=== PATIENT | male | born 1945 | race Caucasian/White ===

== ENCOUNTER 2021-01-21 19:03 | Inpatient (IN) | payer MEDICARE, OTHER ==
[~2021-01-21] VITALS: Ht 180.3 cm; Wt 78.2 kg
[2021-01-21 19:22] LABS: HEMOGLOBIN 15.8 gm/dl (14.0-17.5); RED BLOOD COUNT 5.38 M/UL (4.20-5.50); WHITE BLOOD COUNT 6.1 K/UL (4.5-11.0)
[2021-01-22] MEDS ORDERED: ASPIRIN 325MG325 MG PO (01:58)
[2021-01-22] MEDS ORDERED: ATORVASTATIN CA20 MG PO (02:00)
[2021-01-22] MEDS ORDERED: CLOPIDOGREL75 MG PO (02:00)
[2021-01-22] MEDS ORDERED: DIABETA 2.5 MG2.5 MG PO (02:01)
[2021-01-22] MEDS ORDERED: LANTUS SOL100 UNIT/1 SQ (02:01)
[2021-01-22] MEDS ORDERED: DEXILANT60 MG PO (02:01)
[2021-01-22] MEDS ORDERED: NITRO-TIME2.5 MG PO (02:02)
[2021-01-22 02:17] LABS: HEMOGLOBIN 15.1 gm/dl (14.0-17.5); RED BLOOD COUNT 5.18 M/UL (4.20-5.50)
[2021-01-22 02:19] LABS: WHITE BLOOD COUNT 3.9 K/UL (4.5-11.0)
[2021-01-22 02:40] LABS: BUN/CREATININE RATIO 23 (0-10)
[2021-01-23 07:19] LABS: HEMOGLOBIN 14.2 gm/dl (14.0-17.5); RED BLOOD COUNT 5.22 M/UL (4.20-5.50)
[2021-01-23 07:34] LABS: WHITE BLOOD COUNT 9.7 K/UL (4.5-11.0)
[2021-01-23 07:43] LABS: BUN/CREATININE RATIO 34 (0-10)
[2021-01-24 06:39] LABS: HEMOGLOBIN 15.2 gm/dl (14.0-17.5); RED BLOOD COUNT 5.31 M/UL (4.20-5.50)
[2021-01-24 06:41] LABS: WHITE BLOOD COUNT 16.8 K/UL (4.5-11.0)
[2021-01-24 07:06] LABS: BUN/CREATININE RATIO 40 (0-10)
--- NOTE | 2021-01-24 11:52 | NUR ---
PATIENT HAS CONFUSION TODAY, BUT WAS HYPOXIC FOR MOST OF OVERNIGHT. IS NON-COMPLIANT WITH HIS O2, WILL NOT KEEP IT ON. GOT A 1:1 SITTER TO HELP KEEP HIS OXYGEN ON. HE DROPS TO THE 50S WITHIN A SHORT PERIOD OF TIME BEING ON RA, BUT COMES BACK UP TO THE 90S ONCE HIS AIRVO IS BACK IN PLACE. PATIENT REFUSES TO USE BIPAP. WCTM CLOSELY.
[2021-01-25 10:42] LABS: HEMOGLOBIN 14.9 gm/dl (14.0-17.5); RED BLOOD COUNT 5.15 M/UL (4.20-5.50); WHITE BLOOD COUNT 14.7 K/UL (4.5-11.0)
[2021-01-25 11:08] LABS: BUN/CREATININE RATIO 40 (0-10)
--- NOTE | 2021-01-25 12:50 | NUR ---
PATIENT REMAINS CONFUSED TODAY, KEEPS PULLING OFF HIS OXYGEN. CALLED MD TO LET HIM KNOW THE STATUS, MD PUT IN ORDERS. PATIENT GOT MEDICATION TO HELP WITH HIS RESTLESSNESS AND HAS SINCE SETTLED AND KEPT HIS OXYGEN ON. SPOKE WITH PATIENT'S FAMILY TO LET THEM KNOW WE HAVE THE FORM THEY NEED TO TAKE TO COURT, THEY WILL BE PICKING IT UP TODAY. WCANN CLOSELY.
[2021-01-26 07:04] LABS: BUN/CREATININE RATIO 57 (0-10)
[2021-01-27 04:55] LABS: HEMOGLOBIN 14.7 gm/dl (14.0-17.5); RED BLOOD COUNT 5.11 M/UL (4.20-5.50)
[2021-01-27 05:00] LABS: WHITE BLOOD COUNT 19.2 K/UL (4.5-11.0)
[2021-01-27 05:44] LABS: BUN/CREATININE RATIO 46 (0-10)
[2021-01-28 04:46] LABS: HEMOGLOBIN 15.4 gm/dl (14.0-17.5); RED BLOOD COUNT 5.33 M/UL (4.20-5.50); WHITE BLOOD COUNT 17.3 K/UL (4.5-11.0)
[2021-01-28 05:08] LABS: BUN/CREATININE RATIO 48 (0-10)
[2021-01-29 06:26] LABS: WHITE BLOOD COUNT 13.2 K/UL (4.5-11.0)
[2021-01-29 06:30] LABS: HEMOGLOBIN 13.3 gm/dl (14.0-17.5); RED BLOOD COUNT 4.63 M/UL (4.20-5.50)
[2021-01-29 07:19] LABS: BUN/CREATININE RATIO 51 (0-10)
[2021-01-30 06:20] LABS: HEMOGLOBIN 12.4 gm/dl (14.0-17.5); RED BLOOD COUNT 4.4 M/UL (4.20-5.50); WHITE BLOOD COUNT 8.6 K/UL (4.5-11.0)
[2021-01-30 06:58] LABS: BUN/CREATININE RATIO 58 (0-10)
[2021-01-31 05:24] LABS: HEMOGLOBIN 12.6 gm/dl (14.0-17.5); RED BLOOD COUNT 4.45 M/UL (4.20-5.50)
[2021-01-31 05:48] LABS: BUN/CREATININE RATIO 65 (0-10)
[2021-02-01 06:06] LABS: BUN/CREATININE RATIO 68 (0-10)
[2021-02-02 06:50] LABS: HEMOGLOBIN 13.3 gm/dl (14.0-17.5); RED BLOOD COUNT 4.62 M/UL (4.20-5.50)
[2021-02-02 06:51] LABS: WHITE BLOOD COUNT 14.5 K/UL (4.5-11.0)
[2021-02-02 07:29] LABS: BUN/CREATININE RATIO 72 (0-10)
[2021-02-03 06:38] LABS: HEMOGLOBIN 13.7 gm/dl (14.0-17.5); RED BLOOD COUNT 4.74 M/UL (4.20-5.50)
[2021-02-03 06:39] LABS: WHITE BLOOD COUNT 18.5 K/UL (4.5-11.0)
[2021-02-03 07:24] LABS: BUN/CREATININE RATIO 71 (0-10)
[2021-02-04 05:02] LABS: RED BLOOD COUNT 4.52 M/UL (4.20-5.50); WHITE BLOOD COUNT 15.4 K/UL (4.5-11.0)
[2021-02-04 05:22] LABS: BUN/CREATININE RATIO 76 (0-10)
[2021-02-05 04:52] LABS: HEMOGLOBIN 13.1 gm/dl (14.0-17.5); RED BLOOD COUNT 4.53 M/UL (4.20-5.50); WHITE BLOOD COUNT 13.2 K/UL (4.5-11.0)
[2021-02-05 05:34] LABS: BUN/CREATININE RATIO 82 (0-10)
[2021-02-06 05:33] LABS: HEMOGLOBIN 12.9 gm/dl (14.0-17.5); RED BLOOD COUNT 4.52 M/UL (4.20-5.50); WHITE BLOOD COUNT 15.2 K/UL (4.5-11.0)
[2021-02-06 05:55] LABS: BUN/CREATININE RATIO 103 (0-10)
[2021-02-07 04:49] LABS: HEMOGLOBIN 12.8 gm/dl (14.0-17.5); RED BLOOD COUNT 4.46 M/UL (4.20-5.50); WHITE BLOOD COUNT 13.6 K/UL (4.5-11.0)
[2021-02-07 06:04] LABS: BUN/CREATININE RATIO 57 (0-10)
[2021-02-08 06:05] LABS: HEMOGLOBIN 12.8 gm/dl (14.0-17.5); RED BLOOD COUNT 4.45 M/UL (4.20-5.50); WHITE BLOOD COUNT 15.3 K/UL (4.5-11.0)
[2021-02-08 06:24] LABS: BUN/CREATININE RATIO 62 (0-10)
[2021-02-09 05:18] LABS: HEMOGLOBIN 13.6 gm/dl (14.0-17.5); RED BLOOD COUNT 4.7 M/UL (4.20-5.50); WHITE BLOOD COUNT 12.5 K/UL (4.5-11.0)
[2021-02-09 06:00] LABS: BUN/CREATININE RATIO 64 (0-10)
[2021-02-10 05:07] LABS: HEMOGLOBIN 13.9 gm/dl (14.0-17.5); RED BLOOD COUNT 4.79 M/UL (4.20-5.50); WHITE BLOOD COUNT 13.6 K/UL (4.5-11.0)
[2021-02-10 05:24] LABS: BUN/CREATININE RATIO 66 (0-10)
[2021-02-12 04:10] LABS: HEMOGLOBIN 13.3 gm/dl (14.0-17.5); RED BLOOD COUNT 4.74 M/UL (4.20-5.50); WHITE BLOOD COUNT 13.6 K/UL (4.5-11.0)
[2021-02-12 04:46] LABS: BUN/CREATININE RATIO 64 (0-10)
[2021-02-13 03:12] LABS: HEMOGLOBIN 13.7 gm/dl (14.0-17.5); RED BLOOD COUNT 4.82 M/UL (4.20-5.50); WHITE BLOOD COUNT 10.8 K/UL (4.5-11.0)
[2021-02-13 03:35] LABS: BUN/CREATININE RATIO 58 (0-10)
[2021-02-14 03:34] LABS: HEMOGLOBIN 14.2 gm/dl (14.0-17.5); RED BLOOD COUNT 4.97 M/UL (4.20-5.50); WHITE BLOOD COUNT 10.3 K/UL (4.5-11.0)
[2021-02-14 04:42] LABS: BUN/CREATININE RATIO 66 (0-10)
[2021-02-15 03:02] LABS: RED BLOOD COUNT 4.92 M/UL (4.20-5.50); WHITE BLOOD COUNT 11.7 K/UL (4.5-11.0)
[2021-02-15 03:36] LABS: BUN/CREATININE RATIO 56 (0-10)
--- NOTE | 2021-02-15 19:50 | NUR ---
FALL RISK PERCAUTIONS IN PLACE. BED ALARM ON.
[2021-02-16 06:34] LABS: HEMOGLOBIN 14.4 gm/dl (14.0-17.5); RED BLOOD COUNT 5.02 M/UL (4.20-5.50); WHITE BLOOD COUNT 9.8 K/UL (4.5-11.0)
[2021-02-16 07:00] LABS: BUN/CREATININE RATIO 62 (0-10)
[2021-02-17 03:33] LABS: HEMOGLOBIN 15.7 gm/dl (14.0-17.5); RED BLOOD COUNT 5.52 M/UL (4.20-5.50); WHITE BLOOD COUNT 11.3 K/UL (4.5-11.0)
[2021-02-17 03:52] LABS: BUN/CREATININE RATIO 65 (0-10)
[2021-02-18 06:26] LABS: BUN/CREATININE RATIO 62 (0-10)
[2021-02-19 06:02] LABS: HEMOGLOBIN 15.7 gm/dl (14.0-17.5); RED BLOOD COUNT 5.39 M/UL (4.20-5.50); WHITE BLOOD COUNT 13.7 K/UL (4.5-11.0)
[2021-02-19 06:30] LABS: BUN/CREATININE RATIO 61 (0-10)
[2021-02-20 07:10] LABS: HEMOGLOBIN 14.9 gm/dl (14.0-17.5); RED BLOOD COUNT 5.2 M/UL (4.20-5.50); WHITE BLOOD COUNT 14.1 K/UL (4.5-11.0)
[2021-02-20 07:21] LABS: BUN/CREATININE RATIO 55 (0-10)
[2021-02-21 05:25] LABS: BUN/CREATININE RATIO 57 (0-10)
[2021-02-21 09:34] LABS: HEMOGLOBIN 16.2 gm/dl (14.0-17.5); RED BLOOD COUNT 5.58 M/UL (4.20-5.50); WHITE BLOOD COUNT 12.6 K/UL (4.5-11.0)
[2021-02-22 06:47] LABS: HEMOGLOBIN 17.2 gm/dl (14.0-17.5); RED BLOOD COUNT 6.02 M/UL (4.20-5.50)
[2021-02-22 06:54] LABS: WHITE BLOOD COUNT 8.5 K/UL (4.5-11.0)
[2021-02-22 09:56] LABS: BUN/CREATININE RATIO 64 (0-10)
[2021-02-22] MEDS ORDERED: FLUCONAZOL40 MG/1 ML PO (12:43)
[2021-02-22] MEDS ORDERED: LOPRESSOR 50 MG50 MG NG (12:43)
[2021-02-22] MEDS ORDERED: ELIQUIS 2.5 MG2.5 MG GT (12:43)
--- NOTE | 2021-02-23 10:34 | NUR ---
DR. LAKHANI NOTIFIED REGARDING DISCHARGE WHICH WAS TO OCCUR YESTERDAY 02/22/21. DISCHARGE WAS HELD DUE TO PATIENT NOT HAVING BOWEL MOVEMENT. PATIENT HAD BM THIS AM. DR. LAKHANI NOTIFIED AND APPROVED DISCHARGE TO [facility] TODAY.
--- NOTE | 2021-02-23 11:04 | NUR ---
REPORT CALLED TO JASE AT [facility]. NOTIFIED FACILITY THAT AMBULANCE WOULD PICK PATIENT UP BETWEEN 1:30 AND 2PM.
== END 2021-02-23 13:30 | DRG 207 ==
LOC: ER1 19:03 → CCU 22:01 → MED SURG 4 22:01 → M/S 22:01 → CDU 22:01 → PROG CARE 22:01 → MED SURG 4 01-22 01:41 → CCU 01-26 14:54 → PROG CARE 02-10 16:24 → M/S 02-15 11:22
PROVIDERS: Internal Medicine; Internal Medicine Infectious Disease; Internal Medicine Pulmonary Disease; Nurse Practitioner Family; ADMIT Internal Medicine
PROC: XW033E5 Introduction of Remdesivir Anti-infective into Peripheral Vein, Percutaneous Approach, New Technology Group 5 (ICD-10-PCS; 2021-01-21)
PROC: 3E0333Z Introduction of Anti-inflammatory into Peripheral Vein, Percutaneous Approach (ICD-10-PCS; 2021-01-21)
PROC: 5A0945A Assistance with Respiratory Ventilation, 24-96 Consecutive Hours, High Flow/Velocity Cannula (ICD-10-PCS; 2021-01-22)
PROC: 5A09357 Assistance with Respiratory Ventilation, Less than 24 Consecutive Hours, Continuous Positive Airway Pressure (ICD-10-PCS; 2021-01-25)
PROC: 5A1955Z Respiratory Ventilation, Greater than 96 Consecutive Hours (ICD-10-PCS; principal; 2021-01-26)
PROC: 0BH17EZ Insertion of Endotracheal Airway into Trachea, Via Natural or Artificial Opening (ICD-10-PCS; 2021-01-26)
PROC: 0DH63UZ Insertion of Feeding Device into Stomach, Percutaneous Approach (ICD-10-PCS; 2021-02-04)
PROC: 3E0G76Z Introduction of Nutritional Substance into Upper GI, Via Natural or Artificial Opening (ICD-10-PCS; 2021-02-04)
PROC: 5A0955A Assistance with Respiratory Ventilation, Greater than 96 Consecutive Hours, High Flow/Velocity Cannula (ICD-10-PCS; 2021-02-04)
PROC: 8E0ZXY6 Isolation (ICD-10-PCS; 2021-02-08)
PROC: 0DH63UZ Insertion of Feeding Device into Stomach, Percutaneous Approach (ICD-10-PCS; 2021-02-16)
DX: U07.1 COVID-19 (principal); J12.82 Pneumonia due to coronavirus disease 2019; J80 Acute respiratory distress syndrome; J15.9 Unspecified bacterial pneumonia; G93.41 Metabolic encephalopathy; A41.9 Sepsis, unspecified organism; R65.20 Severe sepsis without septic shock; G93.49 Other encephalopathy; J98.11 Atelectasis; E87.0 Hyperosmolality and hypernatremia; H40.9 Unspecified glaucoma; I10 Essential (primary) hypertension; T38.0X5A Adverse effect of glucocorticoids and synthetic analogues, initial encounter; R13.10 Dysphagia, unspecified; F10.10 Alcohol abuse, uncomplicated; E78.5 Hyperlipidemia, unspecified; E87.6 Hypokalemia; R41.0 Disorientation, unspecified; E11.65 Type 2 diabetes mellitus with hyperglycemia; I95.9 Hypotension, unspecified; R53.81 Other malaise; L89.152 Pressure ulcer of sacral region, stage 2; Z90.49 Acquired absence of other specified parts of digestive tract; Z82.49 Family history of ischemic heart disease and other diseases of the circulatory system; Z83.6 Family history of other diseases of the respiratory system; Z79.82 Long term (current) use of aspirin
CPT/HCPCS: 31500; 36415; 36600; 70551; 71045; 74018; 80048; 80053; 81001; 82140; 82550; 82553; 82728; 82803; 82962; 83605; 83615; 83735; 83874; 83880; 84100; 84132; 84484; 85025; 85027; 85379; 85384; 85610; 85652; 86140; 87040; 87070; 87081; 87086; 87205; 92610; 93005; 94002; 94003; 94640; 94660; 94664; 94760; 95819; 96374; 96375; 97110; 97110-GP-CQ; 97161; 97530; 97530-GP-CQ; 99285; A6212; C9113; G0378; J0330; J0360; J0456; J0696; J1100; J1205; J1650; J1940; J2020; J2060; J2185; J2250; J2704; J3010; J7030; J7040; J7050; P9047; Q9967; U0002

== ENCOUNTER → 2021-04-25 | Outpatient (CLI) | payer MEDICARE, OTHER ==
[~2021-04-25] MED LIST: ASPIRIN 325MG325 MG PO; ATORVASTATIN CA20 MG PO; CLOPIDOGREL75 MG PO; DEXILANT60 MG PO; DIABETA 2.5 MG2.5 MG PO; ELIQUIS 2.5 MG2.5 MG GT; FLUCONAZOL40 MG/1 ML PO; LANTUS SOL100 UNIT/1 SQ; LOPRESSOR 50 MG50 MG NG; NITRO-TIME2.5 MG PO
== END ==
LOC: EMI 12:57
DX: M51.17 Intervertebral disc disorders with radiculopathy, lumbosacral region (principal); M54.89 Other dorsalgia; M51.36 Other intervertebral disc degeneration, lumbar region
CPT/HCPCS: 72148